=== PATIENT | male | born 1970 | race Caucasian/White ===

== ENCOUNTER 2022-06-08 13:53 | Inpatient (IN) | payer OTHER ==
[~2022-06-08] VITALS: Ht 175.3 cm; Wt 95.3 kg
[2022-06-08 14:00] VITALS: BP 125/86
--- NOTE | 2022-06-08 14:10 | NUR ---
PT TO ER BED 6 VIA [facility]
--- NOTE | 2022-06-08 16:12 | NUR ---
Lab at bedside.
[2022-06-08 16:21] LABS: BASOPHILS # (AUTO) 0.1 K/uL (0.00-0.22); BASOPHILS % (AUTO) 0.7 % (0.0-2.0); EOSINOPHILS # (AUTO) 0.1 K/uL (0-0.4); EOSINOPHILS % (AUTO) 1.5 % (0.0-4.0); HEMATOCRIT 43.1 % (36-52); HEMOGLOBIN 14.6 g/dL (12.0-18.0); LYMPHOCYTES # (AUTO) 2.2 K/uL (2.0-11.5); LYMPHOCYTES % (AUTO) 29.7 % (20.5-51.1); MEAN CORPUSCULAR HEMOGLOBIN 32 pg (27-31); MEAN CORPUSCULAR HGB CONC 34 g/dL (33-37); MEAN CORPUSCULAR VOLUME 94.5 fL (80-94); MONOCYTES # (AUTO) 0.5 K/uL (0.8-1.0); MONOCYTES % (AUTO) 6.4 % (1.7-9.3); NEUTROPHILS # (AUTO) 4.5 K/uL (1.8-7.7); NEUTROPHILS % (AUTO) 61.7 % (42.2-75.2); PLATELET COUNT (AUTO) 363 K/uL (140-450); RED BLOOD CELL COUNT(AUTO) 4.57 MIL/uL (4.20-6.10); RED CELL DISTRIBUTION WIDTH 13.6 % (11.6-13.7); WHITE BLOOD COUNT (AUTO) 7.3 K/uL (4.8-10.8)
--- NOTE | 2022-06-08 16:28 | NUR ---
X-Ray at bedside.
[2022-06-08 16:36] LABS: ALBUMIN 3.8 g/dL (3.4-5.0); ANION GAP 16.7 (8-16); CARBON DIOXIDE 26.3 mmol/L (21-32); CREATININE 0.7 mg/dL (0.6-1.3); TOTAL BILIRUBIN 0.3 mg/dL (0.0-1.0)
[2022-06-08] MEDS ORDERED: ALPR2TAB1 PO (17:29)
[2022-06-08] MEDS ORDERED: TRAM-748 PO (17:29)
--- NOTE | 2022-06-08 17:29 | NUR ---
Med recon done
[2022-06-08] MEDS ORDERED: diphenhydrAMINE 50 MG/ML VIAL IVP ONE (18:20)
--- NOTE | 2022-06-08 18:23 | NUR ---
51 y/o male biba for ETOH, patient wants help. Patient has a right knee fracture with splint in place. Patient says his last drink was yesterday. Medical History: Anxiety, Right Knee Fracture NKDA
[2022-06-08] MEDS ORDERED: MORPHINE SULFATE 4 MG/ML SYR IVP PRN (19:10)
[2022-06-08] MEDS ORDERED: POTASSIUM CHLORIDE 10 MEQ TABER PO PRN (19:10)
[2022-06-08] MEDS ORDERED: MAGNESIUM OXIDE 400 MG TAB PO PRN (19:10)
[2022-06-08] MEDS ORDERED: ACETAMINOPHEN 325 MG TAB PO PRN (19:10)
[2022-06-08] MEDS ORDERED: KCL 20 MEQ/WATER INJ PREMIX 200 ML IV PRN (19:10)
[2022-06-08] MEDS ORDERED: MAG SULF 2000 MG/WATER PREMIX 50 ML IV PRN (19:10)
[2022-06-08] MEDS ORDERED: ONDANSETRON 4 MG/2 ML VIAL IVP PRN (19:10)
--- NOTE | 2022-06-08 19:17 | NUR ---
Report given to PATRICIO Up for transfer of care.
--- NOTE | 2022-06-08 19:40 | NUR ---
PATIENT RESTING IN BED WITH EYES CLOSED. RR APPEAR TO BE EVEN AND UNLABORED. DOESNT APPEAR TO BE IN DISTRESS. BED LOW AND LOCKED. ALL NEEDS MET.
--- NOTE | 2022-06-08 20:37 | NUR ---
Chart checked and completed.
--- NOTE | 2022-06-08 20:37 | NUR ---
Patient will be admitted to care of MD SONAM. Admited to TELEMETRY. Will go to room 119B. Belongings list completed. Report to GREGG SANTA. TRANSFER OF CARE
--- NOTE | 2022-06-08 20:45 | NUR ---
RECEIVED PT FROM ER ADMITTED TO [facility] WITH DIAGNOSIS OF ALCOHOL INTOXICATION AND IMPENDING WITHDRAWAL SYNDROME. PT IS AWAKE, ALERT AND VERBALLY RESPONSIVE. PATIENT IS WITH STEADY GAIT, ABLE TO AMBULATE INDEPENDENTLY . SALINE LOCK AT LEFT FOREARM INTACT AND PATENT. PT IS ON REGULAR DIET, NO IV FLUID INFUSING. SKIN INTACT, NO SKIN PROBLEM. PT HAS BM DAILY AND HE HAD BM TODAY WITH NORMAL CONSISTENCY. ORIENT PT TO THE ROOM AND SURROUNDING. PT DENIED OF PAIN, CHEST PAIN, HEADACHE, DIZZINESS, NAUSEA OR VOMITING.
--- NOTE | 2022-06-09 03:22 | NUR ---
PT COMPLAINTS OF GENERAL AND LEGS PAIN 05/25, PAIN MEDICATION MORPHINE ADMINISTERED ORDER
[2022-06-09 04:00] VITALS: BP 128/80
--- NOTE | 2022-06-09 04:22 | NUR ---
PT IS ASLEEP.
[2022-06-09 07:10] LABS: BASOPHILS % (AUTO) 0.6 % (0.0-2.0); EOSINOPHILS # (AUTO) 0.1 K/uL (0-0.4); EOSINOPHILS % (AUTO) 1.3 % (0.0-4.0); HEMATOCRIT 43.6 % (36-52); HEMOGLOBIN 14.8 g/dL (12.0-18.0); LYMPHOCYTES % (AUTO) 12.7 % (20.5-51.1); MEAN CORPUSCULAR HEMOGLOBIN 32 pg (27-31); MEAN CORPUSCULAR HGB CONC 34 g/dL (33-37); MEAN CORPUSCULAR VOLUME 94.8 fL (80-94); MONOCYTES # (AUTO) 0.7 K/uL (0.8-1.0); MONOCYTES % (AUTO) 8.5 % (1.7-9.3); NEUTROPHILS # (AUTO) 6.1 K/uL (1.8-7.7); NEUTROPHILS % (AUTO) 76.9 % (42.2-75.2); PLATELET COUNT (AUTO) 334 K/uL (140-450); RED CELL DISTRIBUTION WIDTH 13.4 % (11.6-13.7); WHITE BLOOD COUNT (AUTO) 7.9 K/uL (4.8-10.8)
[2022-06-09 07:25] LABS: ALBUMIN 3.8 g/dL (3.4-5.0); ANION GAP 13.1 (8-16); CARBON DIOXIDE 29.1 mmol/L (21-32); CREATININE 0.8 mg/dL (0.6-1.3); MAGNESIUM 2.1 mg/dL (1.8-2.4); POTASSIUM 5.2 mmol/L (3.5-5.1); TOTAL BILIRUBIN 0.6 mg/dL (0.0-1.0)
--- NOTE | 2022-06-09 07:30 | NUR ---
PT IS ON STABLE CONDITION. ALL SAFETY MEASURES ARE IN PLACE. NO SOB OR DISTRESS. ENDORSED TO DAY SHIFT NURSE FOR CONTINUITY OF CARE.
[2022-06-09 08:00] VITALS: BP 137/96
--- NOTE | 2022-06-09 08:18 | NUR ---
RECEIVE ENDORSEMENT FROM PM SHIFT NURSE WHILE PATIENT REST IN BED W/ PIV L. FOREARM SALINE LOCK. TEL MONITOR IN PLACE. WILL CONTINUE TO MONITOR
[2022-06-09] MEDS ORDERED: PANTOPRAZOLE 40 MG TABEC PO SCH (09:00)
[2022-06-09] MEDS ORDERED: THIAMINE 100 MG TAB PO SCH (09:00)
[2022-06-09] MEDS ORDERED: ENOXAPARIN 40 MG/0.4 ML SYR SUBQ SCH (09:00)
--- NOTE | 2022-06-09 09:08 | NUR ---
PATIENT HAS BEEN SCREENED AND CATEGORIZED LOW NUTRITION RISK. PATIENT WILL BE SEEN WITHIN 7 DAYS OF ADMISSION. 06/15/22 [facility] REFERRAL RECEIVED: NOT APPLICABLE REVIEWED BY ELIZABETH BROWN RD
[2022-06-09] MEDS: FOLIC ACID 1 MG TAB PO SCH ×2 (09:12→09:18)
[2022-06-09] MEDS: LORazepam 1 MG TAB PO PRN ×3 (09:12→20:17)
[2022-06-09 12:00] VITALS: BP 133/96
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
[2022-06-09 16:00] VITALS: BP 119/89
[2022-06-09] MEDS: HYDROcodone/APAP 5/325 MG 1 TAB TAB PO PRN ×2 (17:56→23:37)
--- NOTE | 2022-06-09 19:35 | NUR ---
ENDORSE PATIENT TO PM SHIFT NURSE THAT DISCHARGE ORDER IN PLACE. PATIENT STABLE WITH NO ROUTINE IV MEDICATION.
--- NOTE | 2022-06-09 19:40 | NUR ---
RECEIVED BEDSIDE REPORT FROM DAY SHIFT RN FOR CONTINUITY OF CARE. PT IS AAOX4 ON RA. PT HAS RIGHT FOREARM 22 GAUGE SALINE LOCK. PT ASKED FOR ATIVAN BUT ITS NOT DUE YET. TOLD PT HE WILL GET ATIVAN ONCE IT IS DUE. PLAN OF CARE DISCUSSED. WILL CONTINUE TO MONITOR THE PT.
[2022-06-09 20:00] VITALS: BP 115/68
--- NOTE | 2022-06-09 20:20 | NUR ---
PT WANTED SOMETHING EXTRA TO EAT. SANDWICH WAS PROVIDED. NO OTHER COMPLAINS
--- NOTE | 2022-06-09 23:40 | NUR ---
PT COMPLAINED OF MODERATE KNEE PAIN. PRN NORCO GIVEN. NO OTHER COMPLAINS. WILL CONTINUE TO MONITOR THE PT.
[2022-06-10] MEDS: LORazepam 1 MG TAB PO PRN ×2 (00:14→05:58)
--- NOTE | 2022-06-10 00:19 | NUR ---
PT FELT ANXIOUS AND WANTED ATIVAN. ATIVAN GIVEN PER MD ORDER. NO OTHER COMPLAINS. WILL CONTINUE TO MONITOR THE PT.
[2022-06-10] MEDS: HYDROcodone/APAP 5/325 MG 1 TAB TAB PO PRN (03:40)
--- NOTE | 2022-06-10 03:43 | NUR ---
PT COMPLAIN OF KNEE PAIN. 03/25. NORCO WAS GIVEN. NO OTHER COMPLAINS. WILL CONTINUE TO MONITOR THE PT.
[2022-06-10 04:00] VITALS: BP 129/73
--- NOTE | 2022-06-10 04:46 | NUR ---
PT WAS OBSERVED. PT IS AWAKE. PT HAS NO COMPLAINS RIGHT NOW. WILL CONTINUE TO MONITOR THE PT.
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
[2022-06-10 07:15] LABS: BASOPHILS % (AUTO) 0.4 % (0.0-2.0); EOSINOPHILS # (AUTO) 0.1 K/uL (0-0.4); EOSINOPHILS % (AUTO) 1.8 % (0.0-4.0); HEMATOCRIT 42.3 % (36-52); HEMOGLOBIN 14.5 g/dL (12.0-18.0); LYMPHOCYTES # (AUTO) 1.4 K/uL (2.0-11.5); MEAN CORPUSCULAR HEMOGLOBIN 33 pg (27-31); MEAN CORPUSCULAR HGB CONC 34 g/dL (33-37); MONOCYTES # (AUTO) 0.6 K/uL (0.8-1.0); MONOCYTES % (AUTO) 8.2 % (1.7-9.3); NEUTROPHILS # (AUTO) 5.2 K/uL (1.8-7.7); NEUTROPHILS % (AUTO) 70.6 % (42.2-75.2); PLATELET COUNT (AUTO) 326 K/uL (140-450); RED BLOOD CELL COUNT(AUTO) 4.45 MIL/uL (4.20-6.10); RED CELL DISTRIBUTION WIDTH 13.1 % (11.6-13.7); WHITE BLOOD COUNT (AUTO) 7.4 K/uL (4.8-10.8)
[2022-06-10 07:38] LABS: ALBUMIN 3.6 g/dL (3.4-5.0); ANION GAP 15.7 (8-16); CARBON DIOXIDE 25.3 mmol/L (21-32); CREATININE 0.8 mg/dL (0.6-1.3); MAGNESIUM 1.7 mg/dL (1.8-2.4); TOTAL BILIRUBIN 0.6 mg/dL (0.0-1.0)
== END 2022-06-10 06:28 | disposition left against medical advice (07) | DRG 203 ==
LOC: MED 13:53 → MTU 19:08
PROVIDERS: ADMIT Hospitalist; ATTEND Hospitalist
DX: R07.89 Other chest pain (principal); F10.129 Alcohol abuse with intoxication, unspecified; F10.139 Alcohol abuse with withdrawal, unspecified; Z20.822 Contact with and (suspected) exposure to COVID-19; Z79.899 Other long term (current) drug therapy; Y90.8 Blood alcohol level of 240 mg/100 ml or more
CPT/HCPCS: 36415; 71045; 80053; 83735; 83880; 84484; 85025; 93005; 96374; 99285; G0482; J1200; J1650; J2270

== ENCOUNTER 2022-06-11 21:12 | Emergency (ER) | payer OTHER ==
[~2022-06-11] VITALS: Ht 172.7 cm; Wt 90.7 kg
[~2022-06-11 21:12] MED LIST: ALPR2TAB1 PO; TRAM50TA1 PO
[2022-06-11 21:28] VITALS: BP 122/88
--- NOTE | 2022-06-11 21:28 | NUR ---
TO LOBBY A/W BED VIA WHEEL CHAIR
--- NOTE | 2022-06-11 21:32 | NUR ---
SEEN AND EXAMINED BY AMANDEEP
[2022-06-11 22:50] VITALS: BP 119/79
--- NOTE | 2022-06-11 22:50 | NUR ---
Patient discharged with v/s stable. Written and verbal after care instructions given and explained. Patient verbalized understanding. Ambulatory with steady gait. All questions addressed prior to discharge. Advised to follow up with PMD.
== END 2022-06-11 22:50 | disposition home or self-care (01) ==
LOC: MED 21:12
DX: F10.129 Alcohol abuse with intoxication, unspecified (principal)
CPT/HCPCS: 99283

== ENCOUNTER 2022-10-05 12:38 | Emergency (ER) | payer OTHER ==
[~2022-10-05] VITALS: Ht 162.6 cm; Wt 63.5 kg
[~2022-10-05 12:38] MED LIST changes: +TRAM-748 PO; -TRAM50TA1 PO
[2022-10-05 12:46] VITALS: BP 132/78
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
--- NOTE | 2022-10-05 12:52 | NUR ---
in room for eval at this time
[2022-10-05] MEDS ORDERED: ACETAMINOPHEN EXTRA STRENGTH 500 MG TAB PO ONE (13:00)
--- NOTE | 2022-10-05 13:40 | NUR ---
XRAY AT BEDSIDE.
[2022-10-05] MEDS ORDERED: NICOTINE TRANSD SYS 14 MG/24 HR PATCH TD SCH (14:10)
[2022-10-05] MEDS ORDERED: ACET-2619 PO (14:29)
[2022-10-06] MEDS ORDERED: ACET-10509 PO (16:16)
[2022-10-06] MEDS ORDERED: IBUP-2213 PO (16:16)
== END 2022-10-05 14:45 | disposition home or self-care (01) ==
LOC: MED 12:38
DX: S09.90XA Unspecified injury of head, initial encounter (principal); M87.08 Idiopathic aseptic necrosis of bone, other site; F41.9 Anxiety disorder, unspecified; R11.2 Nausea with vomiting, unspecified; R55 Syncope and collapse; Z79.899 Other long term (current) drug therapy; X99.1XXA Assault by knife, initial encounter; Y93.89 Activity, other specified; Y92.89 Other specified places as the place of occurrence of the external cause; Y99.8 Other external cause status
CPT/HCPCS: 70450; 73564; 99284; Q0092

== ENCOUNTER 2022-10-06 15:28 | Emergency (ER) | payer OTHER ==
[~2022-10-06] VITALS: Ht 162.6 cm; Wt 63.5 kg
[~2022-10-06 15:28] MED LIST changes: +ACET-2619 PO
[2022-10-06 15:33] VITALS: BP 146/90
--- NOTE | 2022-10-06 16:00 | NUR ---
l palm irrigated and dressed with non adherent x 1
[2022-10-06] MEDS ORDERED: IBUPROFEN 600 MG TAB PO ONE (16:15)
[2022-10-06] MEDS ORDERED: ACETAMINOPHEN EXTRA STRENGTH 500 MG TAB PO ONE (16:15)
[2022-10-06] MEDS ORDERED: IBUP-2213 PO (16:16)
[2022-10-06] MEDS ORDERED: ACET-10509 PO (16:16)
--- NOTE | 2022-10-06 16:28 | NUR ---
Patient discharged with v/s stable. Written and verbal after care instructions given and explained. Patient alert, oriented and verbalized understanding of instructions. Ambulatory with steady gait. All questions addressed prior to discharge. ID band removed. Patient advised to follow up with PMD. Rx of IBU,TYLENOL given. Patient educated on indication of medication including possible reaction and side effects. Opportunity to ask questions provided and answered.
[2022-10-06 16:31] VITALS: BP 132/88
== END 2022-10-06 16:28 | disposition home or self-care (01) ==
LOC: MED 15:28
DX: M25.561 Pain in right knee (principal); Z79.899 Other long term (current) drug therapy
CPT/HCPCS: 99283; 99284

== ENCOUNTER 2023-02-03 10:50 | Emergency (ER) | payer OTHER ==
[~2023-02-03] VITALS: Ht 180.3 cm; Wt 97.5 kg
[~2023-02-03 10:50] MED LIST changes: +ACET-10509 PO; +IBUP-2213 PO
[2023-02-03] MEDS ORDERED: AMOXIL/CLAVULANATE 875/125 MG 1 TAB PO ONE (11:00)
[2023-02-03] MEDS ORDERED: MORPHINE SULFATE 4 MG/ML SYR IVP ONE (11:00)
[2023-02-03 11:05] VITALS: BP 129/98
[2023-02-03 11:22] LABS: BASOPHILS # (AUTO) 0.2 K/uL (0.00-0.22); BASOPHILS % (AUTO) 1.1 % (0.0-2.0); EOSINOPHILS # (AUTO) 0.2 K/uL (0-0.4); EOSINOPHILS % (AUTO) 1.5 % (0.0-4.0); HEMATOCRIT 39.8 % (36-52); HEMOGLOBIN 13.5 g/dL (12.0-18.0); LYMPHOCYTES # (AUTO) 2.1 K/uL (2.0-11.5); LYMPHOCYTES % (AUTO) 15.3 % (20.5-51.1); MEAN CORPUSCULAR HEMOGLOBIN 32 pg (27-31); MEAN CORPUSCULAR HGB CONC 34 g/dL (33-37); MEAN CORPUSCULAR VOLUME 94.9 fL (80-94); MONOCYTES # (AUTO) 0.5 K/uL (0.8-1.0); MONOCYTES % (AUTO) 3.4 % (1.7-9.3); NEUTROPHILS # (AUTO) 10.7 K/uL (1.8-7.7); NEUTROPHILS % (AUTO) 78.7 % (42.2-75.2); PLATELET COUNT (AUTO) 307 K/uL (140-450); RED BLOOD CELL COUNT(AUTO) 4.19 MIL/uL (4.20-6.10); RED CELL DISTRIBUTION WIDTH 13.4 % (11.6-13.7); WHITE BLOOD COUNT (AUTO) 13.6 K/uL (4.8-10.8)
[2023-02-03 11:42] LABS: ALBUMIN 3.9 g/dL (3.4-5.0); ANION GAP 11.4 (8-16); CREATININE 0.8 mg/dL (0.6-1.3); POTASSIUM 4.4 mmol/L (3.5-5.1); TOTAL BILIRUBIN 0.4 mg/dL (0.0-1.0)
[2023-02-03] MEDS ORDERED: HYDROcodone/APAP 5/325 MG 1 TAB TAB PO ONE (12:20)
--- NOTE | 2023-02-03 12:24 | NUR ---
Pt. moved to bed 3 via WC with no distress
[2023-02-03] MEDS ORDERED: AMOX-1230 PO (12:27)
[2023-02-03] MEDS ORDERED: TRAM50TA3 PO (12:27)
[2023-02-03] MEDS ORDERED: IBUP-2213 PO (12:27)
[2023-02-03] MEDS ORDERED: AMOXIL/CLAVULANATE 875/125 MG 1 TAB ONE (12:34)
[2023-02-03 13:23] VITALS: BP 129/98
--- NOTE | 2023-02-03 13:25 | NUR ---
Patient discharged with v/s stable. Written and verbal after care instructions given and explained. Patient alert, oriented and verbalized understanding of instructions. Ambulatory with steady gait. All questions addressed prior to discharge. ID band removed. Patient advised to follow up with PMD. Rx of AMOXICLAV given. Patient educated on indication of medication including possible reaction and side effects. Opportunity to ask questions provided and answered.
== END 2023-02-03 13:23 | disposition home or self-care (01) ==
LOC: MED 10:50
DX: L03.113 Cellulitis of right upper limb (principal); F17.210 Nicotine dependence, cigarettes, uncomplicated; Z71.6 Tobacco abuse counseling; Z79.899 Other long term (current) drug therapy
CPT/HCPCS: 36415; 73120; 80053; 83605; 85025; 87040; 99284

== ENCOUNTER 2023-02-11 15:17 | Emergency (ER) | payer OTHER ==
[~2023-02-11] VITALS: Ht 177.8 cm; Wt 97.5 kg
[~2023-02-11 15:17] MED LIST changes: +AMOX-1230 PO; +TRAM50TA3 PO
--- NOTE | 2023-02-11 15:18 | NUR ---
Patient BIBA to bed 9.
[2023-02-11 15:20] VITALS: BP 116/67
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
[2023-02-11] MEDS ORDERED: KETOROLAC 15 MG/ML VIAL IM ONE (15:45)
[2023-02-11] MEDS ORDERED: NAPR-54 PO (16:23)
== END 2023-02-11 16:40 | disposition home or self-care (01) ==
LOC: MED 15:17
DX: M25.561 Pain in right knee (principal); M87.9 Osteonecrosis, unspecified; F41.9 Anxiety disorder, unspecified; Z79.899 Other long term (current) drug therapy
CPT/HCPCS: 73564; 96372; 99283; J1885; Q0092